=== PATIENT | male | born 1990 | race Caucasian/White ===

== ENCOUNTER 2017-07-02 09:54 | Emergency (ER) | payer OTHER ==
[2017-07-02] MEDS ORDERED: 0.9 % SODIUM CHLORIDE 1,000 ML IV ONE ×2 (10:06→10:23)
[2017-07-02 10:23] LABS: BASOPHILS % 0.6 (0.0-1.5); EOSINOPHILS % 3.2 % (0.0-6.8); MEAN CORPUSCULAR HEMOGLOBIN 29.7 pg (28.0-34.0); NEUTROPHILS # 3.8 # k/uL (1.4-7.7)
[2017-07-02] MEDS ORDERED: FOLIC ACID 5 MG/1 ML ONE (10:24)
[2017-07-02] MEDS ORDERED: THIAMINE HCL 100 MG/ML 2ML VIAL ONE (10:24)
[2017-07-02] MEDS ORDERED: MVI, ADULT NO.1 WITH VIT K 10 ML VIAL IV ONE (10:24)
[2017-07-02 10:38] LABS: APPEARANCE,URINE Clear (CLEAR); COLOR,URINE Yellow (YELLOW); OCCULT BLOOD,URINE Negative (NEGATIVE); UROBILINOGEN URINE 0.2 Eu (0.2-1.0)
[2017-07-02 10:39] LABS: AMPHETAMINE NEGATIVE ng/mL (<1000); BARBITURATES NEGATIVE ng/mL (<300); CANNABINOIDS NEGATIVE ng/mL (< 50); COCAINE NEGATIVE ng/mL (<300); METHAMPHETAMINE NEGATIVE ng/mL (<1000); METHYLENEDIOXYMETHAMPHETAMINE NEGATIVE ng/mL (<500); OPIATES NEGATIVE ng/mL (<300)
[2017-07-02 10:47] LABS: eGFR (African) > 60; eGFR (Non-African) > 60
[2017-07-02] MEDS ORDERED: THIAMINE HCL 100 MG, MVI, ADULT NO.1 WITH VIT K 10 ML, FOLIC ACID 5 MG in 0.9 % SODIUM ... IV SCH ×8 (11:00)
--- NOTE | 2017-07-02 11:07 | ED Physician Documentation ---
Syncope/Near Syncope - HISTORIAN Historian: patient - HPI Stated Complaint: Intoxication-ETOH Chief Complaint: Syncope Witnessed: No Position at Time of Episode: sitting Symptoms Prior to Episode: other (intoxication) Character of Events(s): lost consciousness (reported) Location of Injury: none Associated Symptoms: none Further Comments: yes (26 year old male patient sent in for psychiatric clearance from [facility], [place]. Patient reports drinking 1/2 of a Fifth today, woke up on the shower floor. Patient states he checked himself out of [facility], [place] 1 week ago, had done 22 days of inpatient treatment for ETOH abuse. Reports daily intake was 1 Handle/day, used cocaine, ecstasy and methamphetamines 2 months ago. States he started drinking 4 days ago, "not as much", reports "I have been weaning myself down.") - ROS CONST: denies: recent illness, fever, cough, chills EYES/ENT: none GI/: denies: diarrhea NEURO/PSYCH: denies: confusion, anxiety, depression - PAST HX Cardiac Disease: none PE Risk Factors: none Allergies/Adverse Reactions: Allergies Allergy/AdvReac Type Severity Reaction Status Date / Time No Known Allergies Allergy Unverified 07/02/17 10:29 Home Medications: Ambulatory Orders Medication Instructions Recorded Amoxicillin [Amoxil] 500 mg PO TID 07/02/17 - SOCIAL HX Smoking History: cigarettes Alcohol Use: heavy Drug Use: cocaine, methamphetamines - FAMILY HX Family History: denies: none - VITAL SIGNS Vital Signs: Vital Signs Temp Pulse Resp BP Pulse Ox 98.3 F 100 H 18 143/85 98 07/02/17 09:54 07/02/17 09:54 07/02/17 09:54 07/02/17 09:54 07/02/17 09:54 - REVIEWED ASSESSMENTS Nursing Assessment Reviewed: Yes Vitals Reviewed: Yes Progress - Progress Progress: 1110 extensive discussion with patient regarding discharge and treatment plan. Offered admission or transfer to higher level of care. Patient prefers discharge to [facility], [place], "I am drinking less, I think I will be ok". Discussed with [facility] [place], Ok with admission after syncopal episode. VS stable at discharge. 1 L NS and banana bag given in Er. - EKG/XRAY/CT EKG: NSR ED Results Lab/Radiology - Lab Results Lab Results: Lab Results 1107/02/17 07/02/17 10:20 10:20 10:15 WBC RBC Hgb Hct MCV MCH MCHC RDW Plt Count Neut % (Auto) Lymph % (Auto) [place] % (Auto) Eos % (Auto) Baso % (Auto) Neut # (Auto) Lymph # (Auto) [place] # (Auto) Eos # (Auto) Baso # (Auto) Reactive Lymphs % Reactive Lymphs # Sodium Potassium Chloride Carbon Dioxide BUN Creatinine Estimated Creat Clear Est GFR ( Amer) Est GFR (Non-Af Amer) Glucose Calcium Total Bilirubin AST ALT Alkaline Phosphatase Troponin I < 0.03 ng/mL L ng/mL (0.03-0.06) Total Protein Albumin Urine Color Yellow (YELLOW) Urine Appearance Clear (CLEAR) Urine pH 7.0 (5.0 - 8.0) Ur Specific [place] 1.010 (1.010-1.030) Urine Protein Negative mg/dL mg/dL (NEGATIVE) Urine Ketones Negative mg/dL mg/dL (NEGATIVE) Urine Occult Blood Negative (NEGATIVE) Urine Nitrite Negative (NEGATIVE) Urine Bilirubin Negative (NEGATIVE) Urine Urobilinogen 0.2 Eu Eu (0.2-1.0) Ur Leukocyte Esterase Negative (NEGATIVE) Urine Glucose Negative mg/dL mg/dL (NEGATIVE) Opiates Screen Negative ng/mL ng/mL (<300) Oxycodone Screen Negative ng/mL ng/mL (<100) Methadone Screen Negative ng/mL ng/mL (<300) POC Urine Barbiturates Negative ng/mL ng/mL (<300) Tricyclic Antidepress Negative ng/mL ng/mL (<300) Phencyclidine Screen Negative ng/mL ng/mL (<25) Amphetamines Screen Negative ng/mL ng/mL (<1000) POC Ur Methamphetamine Negative ng/mL ng/mL (<1000) MDMA Negative ng/mL ng/mL (<500) Benzodiazepines Screen Negative ng/mL ng/mL (<300) Cocaine Screen Negative ng/mL ng/mL (<300) U Cannabinoids Screen Negative ng/mL ng/mL (< 50) Ethyl Alcohol 07/02/17 07/02/17 10:15 10:15 WBC 9.30 K/ul K/ul (4.00-12.00) RBC 4.99 M/ul M/ul (3.90-5.20) Hgb 14.8 g/dL g/dL (12.0-18.0) Hct 43.0 % % (37.0-53.0) MCV 86.0 fl fl (80.0-100.0) MCH 29.7 pg pg (28.0-34.0) MCHC 34.5 g/dL g/dL (30.0-36.0) RDW 12.7 % % (11.3-14.3) Plt Count 376 K/mm3 K/mm3 (130-400) Neut % (Auto) 41.1 % % (39.0-79.0) Lymph % (Auto) 47.8 % % (16.0-50.0) [place] % (Auto) 5.0 % % (0.0-11.0) Eos % (Auto) 3.2 % % (0.0-6.8) Baso % (Auto) 0.6 (0.0-1.5) Neut # (Auto) 3.8 # k/uL # k/uL (1.4-7.7) Lymph # (Auto) 4.4 # k/uL H # k/uL (0.6-4.0) [place] # (Auto) 0.5 # k/uL # k/uL (0.0-0.9) Eos # (Auto) 0.3 # k/uL # k/uL (0.0-0.6) Baso # (Auto) 0.1 # k/uL # k/uL (0.0-0.5) Reactive Lymphs % 2.4 % % (0.0-5.0) Reactive Lymphs # 0.2 # k/uL # k/uL (0.0-0.8) Sodium 146 mmol/L H mmol/L (136-145) Potassium 3.8 mmol/L mmol/L (3.5-5.1) Chloride 106 mmol/L mmol/L (98-107) Carbon Dioxide 25 mmol/L mmol/L (22-30) BUN 13 mg/dL mg/dL (9-20) Creatinine 0.70 mg/dL mg/dL (0.66-1.25) Estimated Creat Clear 175 Est GFR ( Amer) > 60 (60 - ) Est GFR (Non-Af Amer) > 60 (60 - ) Glucose 130 mg/dL H mg/dL (74-106) Calcium 9.0 mg/dL mg/dL (8.4-10.2) Total Bilirubin 0.1 mg/dL L mg/dL (0.2-1.3) AST 27 U/L U/L (15-46) ALT 22 U/L U/L (13-69) Alkaline Phosphatase 135 U/L H U/L (38-126) Troponin I Total Protein 8.7 g/dL H g/dL (6.3-8.2) Albumin 4.0 g/dL g/dL (3.5-5.0) Urine Color Urine Appearance Urine pH Ur Specific [place] Urine Protein Urine Ketones Urine Occult Blood Urine Nitrite Urine Bilirubin Urine Urobilinogen Ur Leukocyte Esterase Urine Glucose Opiates Screen Oxycodone Screen Methadone Screen POC Urine Barbiturates Tricyclic Antidepress Phencyclidine Screen Amphetamines Screen POC Ur Methamphetamine MDMA Benzodiazepines Screen Cocaine Screen U Cannabinoids Screen Ethyl Alcohol 251.1 mg/dL H mg/dL (0.0-10.0) - Orders Orders: ED Orders Category Date Time Status Place IV Lock 1T Care 07/02/17 10:06 Active ALCOHOL MEDICAL USE ONLY Stat Lab 07/02/17 10:15 Completed CBC/PLATELET/DIFF Stat Lab 07/02/17 10:15 Completed CMP Stat Lab 07/02/17 10:15 Completed DRUG SCREEN URINE MEDICAL ONLY Stat Lab 07/02/17 10:20 Completed TROPONIN I (cTnI) Stat Lab 07/02/17 10:15 Completed UA W/MICRO IF INDICATED Stat Lab 07/02/17 10:20 Completed 0.9 % Sodium Chloride [Normal Saline] 1,000 ml Med 07/02/17 10:23 Discontinued IV .STK-MED 0.9 % Sodium Chloride [Normal Saline] 1,000 ml Med 07/02/17 10:06 Discontinued IV NOW Folic Acid [Folvite] Med 07/02/17 10:24 Discontinued 5 mg .ROUTE .STK-MED ONE Mvi, Adult No.1 with Vit K [M.v.i. Adult] Med 07/02/17 10:24 Discontinued 10 ml IV .STK-MED ONE Thiamine HCl Med 07/02/17 10:24 Discontinued 200 mg .ROUTE .STK-MED ONE Thiamine HCl 100 mg Med 07/02/17 11:00 Discontinued Mvi, Adult No.1 with Vit K [M.v.i. Adult] 10 ml Folic Acid [Folvite] 5 mg 0.9 % Sodium Chloride [Normal Saline] 1,000 ml IV Q8 Thiamine HCl 100 mg Med 07/02/17 11:00 Ordered Mvi, Adult No.1 with Vit K [M.v.i. Adult] 10 ml Folic Acid [Folvite] 5 mg 0.9 % Sodium Chloride [Normal Saline] 1,000 ml IV Q8 EKG WITH COMPARISON Stat Ther 07/02/17 10:06 Completed Syncope Physical Exam - Physical Exam General Appearance: other (strong smell of ETOH) EENT: nml eye inspection, PERRL, nml ENT inspection, no apparent trauma, pharynx nml, no CSF leak Respiratory: no resp distress, chest non-tender, breath sounds normal CVS: reg rate & rhythm, heart sounds normal, equal pulses, no murmur, no gallop , PMI nml, no JVD, no friction rub, 24 Abdomen: non-tender, no organomegaly, nml bowel sounds, no distention Skin: normal color, warm/dry, NR, INT, PAL, DR Extremities: non-tender, normal range of motion, no evidence of injury, no edema , J, [employer] - Neuro/Psych Higher Functions: alert, oriented x3, no evidence of acute CVA, mood/affect nml Cranial Nerves: nml as tested Cerebellar: nml as tested, nml gait Sensorimotor: nml motor response, nml sensory response, nml reflexes, nml gait Discharge Clincal Impression: Alcohol withdrawal Qualifiers: Complication of substance-induced condition: uncomplicated Qualified Code(s): F10.230 - Alcohol dependence with withdrawal, uncomplicated Alcohol intoxication Qualifiers: Complication of substance-induced condition: uncomplicated Qualified Code(s): F10.920 - Alcohol use, unspecified with intoxication, uncomplicated Referrals: Primary Doctor,No [Primary Care Provider] - 2 Days Additional Instructions: Discharge to [facility], [place] Condition: Stable Disposition: 01 HOME, SELF-CARE Decision to Admit: NO Decision Time: 11:06
[2017-07-02 11:58] VITALS: BP 123/78
== END 2017-07-02 11:55 | disposition home or self-care (01) ==
LOC: ED 09:54
DX: F10.230 Alcohol dependence with withdrawal, uncomplicated (principal); F10.920 Alcohol use, unspecified with intoxication, uncomplicated
CPT/HCPCS: 80053; 80320; 80377; 81002; 84484; 85025; 93005; J3411; J3490; J7030; 96361; 96374; 99283; G0480; G0481; S1016